=== PATIENT | male | born 1950 | race Caucasian/White ===

== ENCOUNTER → 2019-02-07 09:27 | Outpatient (CLI) | payer MEDICARE, OTHER, SELFPAY ==
[2019-02-07 10:10] LABS: Anion Gap 1 (5-15); BUN 18 mg/dL (7-18); BUN/Creat Ratio 18.8 RATIO (10-20); Calcium,Total 8.5 mg/dL (8.5-10.1); Chloride 110 mmol/L (98-107); Creatinine, Serum 0.96 mg/dL (0.70-1.30); EST Glomerular Filtration Rate 83 mL/min (>60); Est Glom Filt Rate - Afr Amer 100 mL/min (>60); Glucose 69 mg/dL (74-106); Potassium 4.3 mmol/L (3.5-5.1); Sodium Level 141 mmol/L (136-145)
== END ==
PROVIDERS: Family Provider Family Medicine; PCP Family Medicine; Referring Provider Physician Assistant Surgical; Visit Provider Physician Assistant Surgical
DX: I10 Essential (primary) hypertension (principal)
CPT/HCPCS: 36415; 80048

== ENCOUNTER → 2024-05-30 | Outpatient (CLI) | payer MEDICARE, OTHER, SELFPAY ==
--- NOTE | 2024-05-30 07:01 | CT_ITS ---
CT RIGHT LOWER EXTREMITY WITH 3-D IMAGING CLINICAL INDICATION: Pain in right knee. TECHNIQUE: Axial CT images of the right lower extremity (including right hip, right knee, and right ankle) was performed without IV contrast material. Coronal and sagittal reformats were provided. The protocol utilizes one or more of the following dose reduction techniques: automated exposure control, adjustment of mA and/or kV according to patient size, and/or use of iterative reconstruction technique. RADIATION DOSAGE (If Supplied By Facility): CTDIvol = ( 18.76 ) mGy, DLP = ( 1321.28 ) mGycm COMPARISON: No relevant prior comparison study available. FINDINGS: Bones: There is mild degenerative arthrosis of the right hip joint with small marginal osteophyte formation. There is mild tricompartment degenerative arthrosis with marginal osteophyte formation. There is a 1.0 cm ossified loose body located medial to the proximal tibiofibular joint. There is minimal tibiotalar arthrosis. There are tiny plantar and posterior calcaneal spurs. Osseous structures are intact without evidence of acute fracture or dislocation. No lytic or blastic osseous masses. Soft Tissues: There is a moderate right knee joint effusion. There are atherosclerotic calcifications. The deep soft tissue structures are otherwise unremarkable. The superficial soft tissues are unremarkable without evidence of edema, hematoma, or foreign body. CT/Extremity Lower without Contra IMPRESSION: Mild tricompartment degenerative arthrosis of the right knee. 1.0 cm ossified loose body located medial to the right proximal tibiofibular joint. Moderate right knee joint effusion. Electronically Signed: Devaughn Adrian MD at 15:29 EDT ,
== END | disposition home or self-care (01) ==
LOC: CT 06:56
PROVIDERS: PCP Family Medicine; Referring Provider Specialist; Visit Provider Specialist
DX: M17.31 Unilateral post-traumatic osteoarthritis, right knee (principal); M21.161 Varus deformity, not elsewhere classified, right knee; M25.561 Pain in right knee
CPT/HCPCS: 73700

== ENCOUNTER 2024-06-06 06:51 | Observation (INO) | payer MEDICARE, OTHER, SELFPAY ==
--- NOTE | 2024-05-12 07:35 | EKG12_ITS ---
Test Reason : PRE OP Blood Pressure : / mmHG Vent. Rate : 059 BPM Atrial Rate : 059 BPM P-R Int : 206 ms QRS Dur : 104 ms QT Int : 434 ms P-R-T Axes : 074 094 080 degrees QTc Int : 429 ms Sinus bradycardia Otherwise normal ECG Confirmed by Fabrizio Salvador ([id number]), continuity editor DEN STEPHENS ([id number]) on 05/13/2024 11:30:23 AM Referred By: Mariusz Trejo Confirmed By:Fabrizio Salvador
[2024-05-12 08:32] LABS: Absolute Lymphocyte Count 1.47 X10^3/uL (0.83-4.51); Absolute Neutrophil Count 3.4 X10^3/uL (2.0-7.7); Basophil# 0.04 X10^3/uL; Basophil% 0.7 % (0-1); Eosinophil# 0.13 X10^3/uL; Eosinophils% 2.3 % (0-5); Hematocrit 43.4 % (40-54); Hemoglobin 14.5 g/dL (13.0-16.5); Lymphocyte # 1.47 X10^3/ul (0.83-4.51); Lymphocyte % 26.1 % (19-41); Mean Corp Hgb Conc 33.4 g/dL (32-36); Mean Corpuscular Hgb 30.9 pg (27.0-32.0); Mean Corpuscular Volume 92.3 fL (80-94); Monocyte# 0.58 X10^3/uL; Monocyte% 10.3 % (0-10); NRBC Flagged by Analyzer 0 % (0-5); Neutrophil % 60.4 % (47-70); Platelet Count 149 K/mm3 (150-450); RBC Distribution Width CV 12.4 % (11.6-14.6); RBC Distribution Width SD 42.5 fl (35.1-43.9); White Blood Count 5.6 K/mm3 (4.4-11.0)
[2024-05-12 09:01] LABS: Albumin, Serum 3.7 g/dL (3.2-5.0); Anion Gap 5 (5-15); BUN 18 mg/dL (7-18); BUN/Creat Ratio 19.2 RATIO (10-20); Calcium,Total 8.7 mg/dL (8.5-10.1); Chloride 109 mmol/L (98-107); Creatinine, Serum 0.94 mg/dL (0.70-1.30); EST Glomerular Filtration Rate 84 mL/min (>60); Est Glom Filt Rate - Afr Amer 102 mL/min (>60); Glucose 101 mg/dL (74-106); Potassium 4.2 mmol/L (3.5-5.1); Sodium Level 142 mmol/L (136-145)
--- NOTE | 2024-05-27 09:08 | HP.PCM_ITS ---
History and Physical History and Physical Patient Name: Prabhjot Onofre : 1950From:? KIM SOTO PA-C DATE OF PRE-OPERATIVE EXAM: 05/27/2024 DATE OF SURGERY:? 06/06/2024 SCHEDULED PROCEDURE:? Robotic-assisted right total knee arthroplasty HISTORY OF PRESENT ILLNESS: Preoperative history and physical exam was performed on May 27, 2024.? This is a 83-year-old male who is been having ongoing pain for several years in bilateral knees.? The right is worse than the left.? Patient's pain is been intermittent, dull, sharp, stabbing, sore.? Pain is increased with going up and down stairs, walking and going up and down inclines.? He has difficulty with activities of daily living including leisure activities such as hiking and playing with his grandkids.? He cannot run.? He has stumbled secondary to the knee pain when it has buckled.? He does feel the right knee will hyperextend at times.? Patient has attempted rest, ice, elevation with minimal relief.? He has been through physical therapy and home exercises with no relief.? He has attempted previous corticosteroid injection and Visco supplementation injections without much relief.? He has had a previous right knee surgery in 1976.? He has attempted [id number] Advil, Tylenol and to be metallic.? He has also been on meloxicam in the past.? He has attempted bracing when hiking.? After failing conservative measures and discussing all treatment options with Dr. Mariusz Trejo, the patient does wish to proceed with a robotic assisted right total knee arthroplasty.? Patient has obtain surgical clearance from primary care provider Dr. Garfield Brunson and cardiology with Rachel Funez.? Patient denies any past history of DVT or pulmonary embolism.? No recent chest pain, shortness of breath, fevers chills or recent infections.? Patient has medical history pertinent for hypertension, hypercholesterolemia, previous heart valve replacement. REVIEW OF SYSTEMS: Review Of Systems: Constitutional: Denies change in appetite, fever and weight change. Cardiovasular: Denies chest pain, heart murmur and irregular heartbeat. Respiratory: Denies cough, pneumonia, shortness of breath, tuberculosis and wheezing. Gastrointestinal: Denies constipation, diarrhea, heartburn, nausea, rectal itching, bloody stools and vomiting. Genitourinary: Denies incontinence. Musculoskeletal: Denies leg swelling, pain, trouble walking and weakness. Skin: Denies Raynaud's, history of shingles and tattoo. Neurological: Reports tremor but denies ambulatory dysfunction, dizziness and numbness/tingling. Psychiatric: Denies anxiety, insomnia and stress. Hematologic/Lymphatic: Denies anemia, bleeding/bruising tendency and past transfusion. Reviewed, no changes. PAST MEDICAL HISTORY: Advance Care Plan: Other Directive, LIVING WILL Effective Date: 11/21/2021 Other Directive, POA Effective Date: 11/21/2021 Past Medical History: Medical Problems: High Blood Pressure, Hypercholesterolemia, MVP Accidents: None Surgical Hx: Hernia Repair, Tonsillectomy Knee Arthroscopy RT - (1976) Heart Valve Repair RT Shoulder Arthroscopy - (02/23/2019) [email or web address] Anesthesia Complications: None Assistive Devices: Glasses Reviewed, no changes. SOCIAL HISTORY: Social History: Marital: .Occupation: Retired.Work Status: Retired.Hand Dominance: Right- handed. Personal Habits:? Cigarette Use: Never Smoked Cigarettes.Alcohol: Occasionally.Drug Use: Denies Use.Enjoy Exercising: Daily. Reviewed, no changes. VITALS: Ht: 70.5 Wt: 173lb 6oz Wt k.643 BMI: 24.5 BP: 120/72 Pulse: 71 T: 97.3 T: 36.3C Pain Level: 3 O2SatR: 96 ALLERGIES: Naproxen MEDICATIONS: Benadryl 25 mg 1po qhs, Rosuvastatin Calcium 10 mg 1 by mouth every day, Sildenafil Citrate 50 mg, Metoprolol Succinate ER 50 mg once daily, Diphenhydramine HCL 25 mg ayan, Aspirin 81 Low Dose 81 mg ayan PRE-OP EXAM: General appearance:NORMAL? Other: Eyes: Conjunctivae and lids: NORMAL? Pupils: ERR Ears, Nose, Mouth, and Throat: NORMAL? Other: Inspection of lips, teeth and gums: NORMAL?? Other: Neck: Examination of neck: no masses noted. Respiratory: Assessment of respiratory effort: NORMAL?? Other: ? Auscultation of lungs: clear to auscultation no wheezes, rhonchi or rales. Cardiovascular:? Auscultation of heart: regular rate and rhythm, no murmurs, gallops or rubs. PHYSICAL EXAMINATION: On exam of the right knee there is no erythema or signs of infection.? He has moderate effusion.? There is medial joint line tenderness.? Previous incisions are well healed.? Patient has correctable varus alignment on exam today.? P atient's range of motion 0 extension 132 flexion with crepitus.? Stable to varus/valgus stress test, stable to anterior/posterior drawer exam.? Sensation intact. IMAGING STUDIES: Previous x-rays of the right knee reveal varus alignment with medial joint space narrowing, subchondral sclerosis, osteophyte formation consistent with severe stage IV [id number] erosive osteoarthritis.? There is lateral subluxation of the tibia on the femur.? Left knee also reveals severe stage IV [id number] erosive osteoarthritis with lateral subluxation of the tibia. IMPRESSION: 1.? Severe right knee osteoarthritis with varus alignment 2.? Severe left knee osteoarthritis with varus alignment 3.? Hypertension 4.? Hypercholesterolemia 5.? History of heart valve replacement PLAN: Dr. Mariusz Trejo did discuss and review with the patient all treatment options including surgical versus nonsurgical options.? Patient does wish to proceed with the above-stated procedure.? Potential risks, benefits, and complications of the procedure were discussed in detail including but not limited to , infection, nerve and blood vessel damage, persistent pain, numbness, tingling, paresthesias, blood clot, pulmonary embolism, and requirement for possible further surgery.? The patient expressed full understanding and has no further questions for the doctor.? Patient does agree to proceed with the above-stated p rocedure and has signed the surgery consent form. POST-OP MEDICATION PLAN: Pain Medications: Postoperative pain regimen will be initiated by Dr. Mariusz Trejo in the hospital.? Patient does have allergy to naproxen but as tolerated many other nonsteroidal anti-inflammatories.? Patient will require walker fitting with our physical therapy department today.? Patient was instructed to bring the walker to the hospital.? He has had appropriate clearance from cardiology and primary care provider.? He has been following our nutrition protocol. DVT Prophylaxis:? Aspirin 81 mg twice daily for 4 weeks postoperatively.? Denies past history of DVT or pulmonary embolism This dictation was created using voice recognition software. Phonetic and/or grammatical errors may exist. ___? I have re-examined the patient.? There are no clinical changes since date of exam. ___? See progress notes for changes. ___? Dictated on admission Date: ? Time: Signature:
[2024-06-06] VITALS (15 sets, daily range): BP systolic 84–124; BP diastolic 47–85; PULSE 68–86; RESP 16–18; TEMP 36.1–36.8; O2SAT 93–100; BMI 24.0; BMI 25.1
--- NOTE | 2024-06-06 06:52 | RAD_ITS ---
STUDY: X-RAY - RIGHT KNEE REASON FOR EXAM: Male, 74 years old. Post op -- AP and Lateral xray of operative knee in PACU TECHNIQUE: 2 view(s) of the knee. COMPARISON: None. FINDINGS: Normal visualized distal femur. Normal visualized proximal tibia and fibula. Normal proximal tibiofibular articulation. The patient is status post total knee replacement. There is good alignment. Postoperative soft tissue changes. RAD/Knee 1 or 2 Views IMPRESSION: Status post total knee replacement. There is good alignment. Postoperative soft tissue changes. Electronically Signed: Antony Guevara MD at 13:35 EDT ,
--- NOTE | 2024-06-06 09:34 | PCM.PRE.AN2 ---
ASA Classification* ASA Classification ASA Classification: 2 Assessment & Plan Anesthesia* Anesthesia Assessment Anesthesia Assessment: Discussed sedation and/or anesthesia options, risks, benefits, and alternatives with patient/parents/legal guardian/POA. Questions invited. The patient/parents/legal guardian/POA seems to understand and agrees to proceed with anesthesia plan. Reviewed the physical assessment, medical history, allergy history and patient home medications list prior to surgery/procedure/anesthetic and documented any changes. Performed airway and anesthesia risk assessments. Anesthesia Type Anesthesia Type: Spinal (consented for adductor canal block) Anesthesia Focused Assessment* Airway Assessment Mouth opens: >3 cm Mallampati Score: II Focused Labs Anesthesia Preop lab: CBC WBC 5.6 K/mm3 (4.4-11.0) 05/12/24 08:02 RBC 4.70 M/mm3 (4.6-6.2) 05/12/24 08:02 Hgb 14.5 g/dL (13.0-16.5) 05/12/24 08:02 Hct 43.4 % (40-54) 05/12/24 08:02 Plt Count 149 K/mm3 (150-450) L 05/12/24 08:02 CHEMISTRY Potassium 4.2 mmol/L (3.5-5.1) 05/12/24 08:02 Sodium 142 mmol/L (136-145) 05/12/24 08:02 Magnesium 2.0 mg/dL (1.6-2.6) 05/12/24 08:02 BUN 18 mg/dL (7-18) 05/12/24 08:02 Creatinine 0.94 mg/dL (0.70-1.30) 05/12/24 08:02 Glucose 101 mg/dL (74-106) 05/12/24 08:02 COAG Pre-Assessment Diagnosis/Proposed Procedure Planned Operative Procedure(s): ROBOTIC ASSISTED RIGHT TOTAL KNEE ARTHROPLASTY Anesthesia History 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 When Was Last Pacemaker Check QUESTION #4 FULL TEXT: You/Your Family Experience fever (hyperthermia) with Anesthesia Last Oral Intake Last Oral intake: Last Oral Intake NPO since Meds taken in AM with sips of water? Meds patient instructed to take am of surgery PONV PONV - prepared foods service team member: PONV - prepared foods service team member Female No 05/11/24 09:05 HX of Motion Sickness Yes 05/11/24 09:05 HX of N/V After Surgery No 05/11/24 09:05 Non-Smoker Yes 05/11/24 09:05 Duration of Surgery greater Yes 05/11/24 09:05 than 60 minutes Number of Risk Factors 3 05/11/24 09:05 PONV Score Moderate Risk 05/11/24 09:05 Respiratory Assessment Respiratory Assessment - prepared foods service team member: Respiratory Tract Infection Hx - prepared foods service team member Hx Respiratory Tract Infection No 05/11/24 09:05 STOP Sleep Apnea STOP Sleep Apnea - prepared foods service team member: STOP Sleep Apnea - prepared foods service team member Hx Hypertension Yes: CONTROLLED WITH MED 05/11/24 09:05 Hx Sleep Apnea No 05/11/24 09:05 CPAP BIPAP Do you snore loudly (louder Yes 05/11/24 09:05 than talking or can be heard Do you often feel tired/ No 05/11/24 09:05 fatigued/ sleepy during daytime? Has anyone observed you stop Yes 05/11/24 09:05 breathing during sleep? STOP Results Positive 05/11/24 09:05 QUESTION #5 FULL TEXT : Do you snore loudly (louder than talking or can be heard through closed doors)? 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 Specify any problems Hx of Preganancy in last 3 N/A 05/11/24 09:05 Months Nurse Filling Out Transfusion DSCHRIBER 05/11/24 09:05 & Questions: Date: 05/11/24 05/11/24 09:05 Time: 09:07 05/11/24 09:05 Patient unable to answer at this time (ie. confused, unrespo /Reproduction History /Reproductive History - prepared foods service team member: /Reproductive Hx- prepared foods service team member Hx Now No 05/11/24 09:05 Gestational Age (in weeks): EDC: Hx Hx Para Hx Section SAB No 05/11/24 09:05 Active Medications Active Medications: Current Medications Generic Name Dose Route Start Last Admin Trade Name Freq PRN Reason Stop Dose Admin Acetaminophen 1,000 mg 06/06/24 11:15 Acetaminophen 500 Mg Tablet PO 06/06/24 11:16 X1 ONE Acetaminophen 1,000 mg 06/06/24 14:00 Acetaminophen 500 Mg Tablet PO Q8 [facility] Aspirin 81 mg 06/06/24 10:00 Aspirin 81 Mg Tab.Chew PO BID [facility] Celecoxib 400 mg 06/06/24 11:15 Celecoxib 200 Mg Capsule PO 06/06/24 11:16 X1 ONE Tranexamic Acid 2,000 mg/ 0 mg 06/06/24 11:15 Sodium Chloride 100 ml OPERA.SITE 06/06/24 11:16 X1 ONE Sodium Chloride 77.4 ml/ 0 ml 06/06/24 11:15 Ropivacaine 200 mg/ OPERA.SITE 06/06/24 11:16 Epinephrine HCl 0.6 mg/ X1 ONE Ketorolac Tromethamine 30 mg/ Morphine Sulfate 5 mg Dexamethasone Sodium Phosphate 10 mg 06/06/24 11:15 Dexamethasone 10 Mg/Ml Vial IV 06/06/24 11:16 X1 ONE Enteral Nutritional Formula 237 ml 06/06/24 12:00 Ensure Surgery 237 Ml Liquid PO TIDCM [facility] Famotidine 20 mg 06/06/24 10:00 Famotidine 20 Mg Tablet PO DAILY [facility] Gabapentin 600 mg 06/06/24 11:15 Gabapentin 600 Mg Tablet PO 06/06/24 11:16 X1 ONE Lactated Ringer's 1,000 mls @ 999 mls/hr 06/06/24 11:15 IV 06/06/24 12:15 .Q1H1M [facility] Cefazolin Sodium 2 gm/ Sodium 110 mls @ 150 mls/hr 06/06/24 11:15 Chloride IV 06/06/24 11:58 PREOP ONE Lactated Ringer's 1,000 mls @ 999 mls/hr 06/06/24 12:15 IV 06/06/24 13:15 .Q1H1M VIRGIL Lactated Ringer's 1,000 mls @ 125 mls/hr 06/06/24 13:15 IV 06/06/24 21:14 .Q8H [facility] Magnesium Sulfate 1 gm/ 102 mls @ 408 mls/hr 06/06/24 11:15 Dextrose IV 06/06/24 11:29 X1 ONE Cefazolin Sodium 1 gm in 50 mls @ 150 mls/hr 06/06/24 14:00 IV 06/06/24 22:19 Q8 [facility] Insulin Human Lispro 1 - 6 unit 06/06/24 11:15 Insulin Lispro 100 Unit/Ml Insuln.Pen SC 06/06/24 17:15 Q4H PRN PRN BG>/= 180, SEE PROTOCOL Protocol Ketorolac Tromethamine 15 mg 06/06/24 06:51 Ketorolac 15 Mg/Ml Vial IV 06/08/24 06:53 Q6H PRN PRN Pain Score 1-5 Meloxicam 7.5 mg 06/08/24 10:00 Meloxicam 7.5 Mg Tablet PO BID [facility] Metoprolol Succinate 50 mg 06/06/24 22:00 Metoprolol(Xl)Succ 50 Mg Tablet PO QHS [facility] Protocol Morphine Sulfate 2 - 4 mg 06/06/24 06:51 Morphine 2 Mg/Ml Syringe IV Q2H PRN PRN Pain Score 6-10 Non-Formulary Medication 125 mcg 06/06/24 22:00 Cholecalciferol (Vitamin D3) [Vitamin D3] PO QHS [facility] Non-Formulary Medication 10 mg 06/06/24 22:00 Rosuvastatin PO QHS [facility] Ondansetron HCl 4 mg 06/06/24 06:51 Ondansetron 4 Mg/2 Ml Vial IV Q8H PRN PRN NAUSEA Oxycodone HCl 5 - 10 mg 06/06/24 06:51 Oxycodone 5 Mg Tablet PO Q4H PRN PRN Pain Score 4-10 Promethazine HCl 12.5 mg 06/06/24 06:51 Promethazine 25 Mg/Ml Syringe IM Q6H PRN PRN NAUSEA/VOMITING Protocol Senna/Docusate Sodium 2 tablet 06/06/24 10:00 Senna/Docusate Sodium 1 Tablet PO BID [facility] Medical History Wears hearing aid Wears glasses Alcohol use Arthritis High cholesterol Back pain Injury of back Syncope Non-smoker Leg cramps History of pain when walking Hypertension History of stress test History of echocardiogram Cardiology follow-up encounter History of inguinal hernia Home Medications ?Medication ?Instructions ?Recorded ?Last Taken ?Type aspirin 81 mg tablet,delayed 81 mg PO QHS 05/11/24 Unknown History release (Adult Aspirin Regimen) cholecalciferol (vitamin D3) 125 125 mcg PO QHS 05/11/24 Unknown History mcg (5,000 unit) tablet (Vitamin D3) diphenhydramine HCl 25 mg capsule 25 mg PO QHS 05/11/24 Unknown History (Benadryl) metoprolol succinate 50 mg 50 mg PO QHS 05/11/24 Unknown History tablet,extended release 24 hr rosuvastatin 10 mg tablet 10 mg PO QHS 05/11/24 Unknown History sildenafil 50 mg tablet 50 mg PO PRN PRN ED 05/11/24 Unknown History Allergy/AdvReac Type Severity Reaction Status Date / Time naproxen Allergy Intermediate Swelling Verified 05/11/24 08:55 Surgical History History of cardiac catheterization Hx of colonoscopy Hx of toe surgery Hx of tonsillectomy Hx of arthroscopic knee surgery History of shoulder surgery Hx of mitral valve repair Social History Smoking Status: Never smoker Review of Systems (Anesthesia) ROS Narrative System reviewed and no additional complaints, except as documented.
[2024-06-06 10:04] LABS: Bedside Glucose 94 mg/dL (74-106)
[2024-06-06] MEDS: Magnesium 1 GM over 15 mins IV (10:04)
[2024-06-06] MEDS: Lactated Ringers 1,000 ML 999 ML IV ×2 (10:04→12:15)
[2024-06-06] MEDS: Gabapentin 600 MG Tablet PO (10:17)
[2024-06-06] MEDS: Celecoxib 200 MG Capsule 400 MG PO (10:18)
[2024-06-06] MEDS: Acetaminophen 500 MG Tablet 1000 MG PO ×3 (10:18→21:25)
[2024-06-06] MEDS: Cefazolin 2 GM in 0.9% Normal Saline (100mL Bag) 100 ML IV (11:01)
--- NOTE | 2024-06-06 11:15 | KNEE_PTH ---
PATIENT: RENATE MONCADA LOC: MS3 U#:[id number] AGE/SX: 74/M ROOM: [facility] RE06/06/[address]: Dr. Mariusz Trejo MD : 1950 BED: 1 DIS: 06/07/2024 SPEC #: [id number] RECD: 06/07/24 07:23 STATUS: SERJIO SALAS #: [id number] JOSEPH: 06/06/24 11:[address]: Mariusz Trejo DEPT: SURGICAL PATHOLOGY RECD BY: Ashanti Goldman ENTERED: 06/07/24 09:53 SP TYPE: TOTAL KNEE OTHR DR: MD Dr. Garfield Ross, DO Tissues: Knee, NOS Procedures: Decalcification bone/plaque Surgery Specimen Level IV HEADER OPERATION: Robotic assisted right total knee arthroplasty PRE-OP DIAGNOSIS: Severe right knee osteoarthritis, with varus alignment TISSUE SUBMITTED: Right knee bone and tissue MICROSCOPIC DIAGNOSIS Bone and soft tissue, right knee, total knee replacement/resection: Pieces of bone with degenerative osteoarthritic changes. Fibroadipose tissue, fibroconnective tissue and reactive synovial tissue. ANGI: 06/10/2024 MICROSCOPIC DESCRIPTION Slides are reviewed. GROSS DESCRIPTION Received is one container designated bone and soft tissue right knee. The specimen consists of multiple fragments of prabhakar-yellow bone measuring in aggregate 10.0 x 9.0 x 3.5 cm. A piece of soft tissue is noted attached to the bone measuring 4.5 x 2.5 x 1.0cm. A number of bony fragments contain articular surfaces consistent with tibial plateau and femoral condyle and displaying prominent osteophyte formation, eburnation and bone erosion. Order To Delivery Supervisor sections are submitted in two cassettes as follows: 1 - soft tissue, 2 - bone after decalcification. / ANGI/ 06/07/2024 TC:5 CPT: 86570, 64026
[2024-06-06] MEDS: dexAMETHasone 10 MG/ML Vial IV (11:30)
[2024-06-06] MEDS: JPS (Morphine 10mg/ml) OPERA.SITE (12:15)
--- NOTE | 2024-06-06 12:15 | PCM.OPRPT ---
Report of Operation Date of Procedure: 06/06/24 Pre-Operative Diagnosis: Right knee primary osteoarthritis Post-Operative Diagnosis: Right knee primary osteoarthritis Surgery/Procedure Performed:: Right minimally invasive robotic total knee replacement Description of Surgical Findings:: Stable knee with good patella tracking. Stage IV osteoarthritis medial and lateral compartment. Patella had appropriate cartilage and we elected to leave the patella on resurfaced Surgeon: Mariusz Trejo warp clamper: Neal Torrez Type of Anesthesia: Spinal Anesthesiologist: Dominick Odom Special Medications: 2 g Ancef, 1 g TXA at incision, 1 g TXA closure, 10 mg Decadron, joint cocktail (5 mg Duramorph, 30 mL of 0.5% Ropivicaine, 1000 units of epinephrine, 30 mg of Toradol) Specimen's removed: Bony cuts Estimated Blood Loss (mL): 125 Fluids Replaced: 2000 mL crystalloid Description of Procedure: Implants used: 1. Chano size 6 triathlon cruciate retaining distal femoral press-fit component 2. Chano size 7 press-fit tritanium tibial baseplate 3. Chano X3 10 mm CS polyethylene Brief history operative indications: 74-year-old M with history of right knee osteoarthritis with radiographic findings with loss of joint space, osteophyte formation and subchondral sclerosis. Failed conservative measures as mentioned in the H&P. Discussion of total knee arthroplasty as well as risk and benefits were discussed the patient including but not limited to blood loss, DVTs, PEs, neurovascular damage, general risk of anesthesia including loss of life, and stiffness or instability were discussed with patient. Patient demonstrated understanding and was able to sign informed consent. Procedure: On the date of procedure patient's right lower extremity was marked in the preoperative area. The patient was then taken back to the operating room where the patient was placed on the table in the supine position. All bony prominences were identified a well-padded. Anesthesia assumed control of the C-spine and airway and remained controlled throughout the remainder of the procedure. A tourniquet was placed on the right upper thigh and the leg was prepped in a sterile fashion. The surgeon then scrubbed at this time .Upon reentering the room right lower extremity was draped in a standard orthopedic fashion. A timeout was then called and everyone agreed upon the side, the site, the procedure to be performed, patient's identity and antibiotics given. Esmarch bandage was used to exsanguinate the extremity and the tourniquet was placed up to 250 mmHg with the knee in flexion. A midline skin incision was made and sharp dissection was taken down through skin subcutaneous tissue and fat. The standard medial parapatellar incision was made and the patella was subluxed laterally. An Appropriate deep MCL release was done and the fat pad was resected. Our attention was then directed to the patella. The patella was everted and examined and found to have minimal cartilage damage. The knee was then flexed up in 2 femoral pins were placed inside the incision and 2 tibial pins were placed outside the incision in the medial tibia bicortically. Once this was completed the 2 checkpoints in the femur and tibia were placed. Knee was then flexed up and the bony landmarks were registered. Once this was completed knee was taken through range of motion and manually stressed allowing us to a plan for an appropriate tibial cut. The robotic arm was brought into the field sterilely and checkpoint and saw were registered. Based on the patient's deformity the tibial cut was made in 2 degrees of varus. At this time the tensioner was then placed in the joint and ligament tension was checked at 90 degrees and full extension. Based on the patient's ligamentous tension appropriate adjustments were made to the operative plan and ligament releases were done. Once we were happy with our operative plan with balanced flexion and extension gaps our attention was directed to the femur. The robot was brought into the field sterilely and registered. Posterior condylar cuts, anterior chamfer cuts and anterior cuts were appropriately made for a size 6 femur. When these were completed the saws were switched out in the distal femoral and posterior chamfer cuts were made. Protecting the soft tissue throughout this time. A size 7 tibial base plate was selected. the knee was flexed to 90 degrees and the soft tissues and posterior osteophytes were removed from the joint. 40 cc of the periarticular injection was injected into the posterior medial corner of the joint. The appropriate trials were then placed on the femur and tibia. A trial polyethylene was trialed to ensure proper balancing and stability of the knee. The appropriate tibial internal rotation was then marked with a bovie. Our attention was then directed to the patella. Patellar tracking was checked and deemed appropriate. Once we were happy lug holes were drilled for the femur and trial components were removed. the tibia was subluxed and pinned into place and the keel was punched and drilled appropriately. Final components were verified and opened, and cement was mixed in a vacuum. [employer] Simplex cement was used. The wound was copiously irrigated with normal saline. When the implants were ready the components were impacted into place starting with the tibia then femur. The trial poly component was placed and the knee was placed in full extension. All excess cement was removed in the process. Once the cement had cured the tracking, alignment and balance were verified and a size 10 mm CS polyethylene component was placed. Once the final components were placed a 3-minute dilute Betadine lavage was performed followed by an Irrisept lavage was performed and the wound was copiously irrigated with normal saline solution and the periarticular injection was given. The wound was closed in a layer moreland fashion using #1 vicryl interrupted sutures for the arthrotomy, 2-0 interrupted Vicryl suture for the subcuticular layer and ilir for final skin closure. A sterile compressive dressing was then placed. The patient was then awakened from anesthesia, transferred to the radrian and transferred to the PACU for recovery. Post op plan DVT ppx: ASA 81mg BID, thigh high compression stockings Follow up: in office in 2 weeks for wound check PT: to start POD #0 at hospital, outpatient PT should be arranged. My physician wet process assistant head miller was a vital part of this case. He was important in appropriate retraction during the case, and protection of soft tissues during bony cuts. His intimate knowledge of the case and my steps aided in safe and expedient completion of the procedure as well as appropriate position of the leg during the case. He was also vital in assisting with closure under my direct supervision. Due to the complexity of this case robotic arm was used to assist in the surgery to improve accuracy and clinical outcomes. Complications No intraoperative complications Admit VTE Documentation VTE Present on Admission: No VTE Mechan Device Prophylaxis: SCD's and Thigh High JESUS Hose VTE Pharm Prophylaxis ordered?: Yes
[2024-06-06] MEDS: TXA in NS 100ml (Placed in Wound) OPERA.SITE (12:16)
--- NOTE | 2024-06-06 13:05 | PCM.POST.ANE ---
Anesthesia: Postop Eval I Current Vital Signs Temperature: 97.1 F Pulse Rate: 76 Blood Pressure: 94/67 Respiratory Rate: 18 Pulse Ox: 98 Oxygen Delivery Method: Room Air Assessment Airway patent: Yes Spontaneous unlabored respirations: Yes Mental status: Awake and Calm nausea: No Vomiting: No Anesthesia Complication: No Fluid Hydration Crystalloid volume administer (ml): 2,000 Total IV fluid infused: 2,000 Progress Note Anesthesia document: Postop Eval 1 completed: Yes
[2024-06-06] MEDS: Lactated Ringers 1,000 ML 125 ML IV (13:45)
--- NOTE | 2024-06-06 15:06 | POSTOPAN2_ITS ---
Anesthesia Postop Eval I Sum Postop Eval Completion status Anesthesia document: Postop Eval 1 completed: Yes Anesthesia Postop Eval I Summary Anesthesia Postop Eval I Summary: Anesthesia Postop Eval I: Assessment Summary Airway patent Yes 06/06/24 13:06 FENCE MAKING MACHINE OPERATOR.[email or web address] Spontaneous unlabored Yes 06/06/24 13:06 FENCE MAKING MACHINE OPERATOR.NICOLE respirations Mental status Awake,Calm 06/06/24 13:06 FENCE MAKING MACHINE OPERATOR.NICOLE nausea No 06/06/24 13:06 FENCE MAKING MACHINE OPERATOR.NICOLE Vomiting No 06/06/24 13:06 FENCE MAKING MACHINE OPERATORSTACEY Anesthesia Postop Eval I: Fluid Summary Crystalloid volume administer 2,000 06/06/24 13:06 FENCE MAKING MACHINE OPERATOR.TONYAOBAmador (ml) Colloids volume administered ( ml) Blood Product volume administered (ml) Total IV fluid infused 2,000 06/06/24 13:06 FENCE MAKING MACHINE OPERATOR.NICOLE Anesthesia Postop Eval I: Summary Notes Anesthesia Complication No 06/06/24 13:06 FENCE MAKING MACHINE OPERATORSTACEY Anesthesia Complication Comment: Post-operative progress note Anesthesia: Postop Eval II Evaluation Mental status: Awake and Calm Pain Level: 1 nausea: No Vomiting: No Complications Anesthesia Complication: No
--- NOTE | 2024-06-06 15:06 | PCM.POSTANE2 ---
Anesthesia Postop Eval I Sum Postop Eval Completion status Anesthesia document: Postop Eval 1 completed: Yes Anesthesia Postop Eval I Summary Anesthesia Postop Eval I Summary: Anesthesia Postop Eval I: Assessment Summary Airway patent Yes 06/06/24 13:06 WATERSHED [email or web address] Spontaneous unlabored Yes 06/06/24 13:06 WATERSHED ENGINEER.NICOLE respirations Mental status Awake,Calm 06/06/24 13:06 WATERSHED ENGINEER.NICOLE nausea No 06/06/24 13:06 WATERSHED ENGINEER.NICOLE Vomiting No 06/06/24 13:06 WATERSHED ENGINEERSTACEY Anesthesia Postop Eval I: Fluid Summary Crystalloid volume administer 2,000 06/06/24 13:06 WATERSHED ENGINEER.TONYAOBAmador (ml) Colloids volume administered ( ml) Blood Product volume administered (ml) Total IV fluid infused 2,000 06/06/24 13:06 WATERSHED ENGINEER.NICOLE Anesthesia Postop Eval I: Summary Notes Anesthesia Complication No 06/06/24 13:06 WATERSHED ENGINEERSTACEY Anesthesia Complication Comment: Post-operative progress note Anesthesia: Postop Eval II Evaluation Mental status: Awake and Calm Pain Level: 1 nausea: No Vomiting: No Complications Anesthesia Complication: No
--- NOTE | 2024-06-06 15:39 | CASEMGMT ---
Social Work- SW met with pt to discuss advance directives.? Pt confirms she has completed a living will and health care POA naming Janel, .? Pt notified that documents are not on file at [facility] and SW requested they be brought in for scanning into the EMR.? [facility]
[2024-06-06] MEDS: oxyCODONE 5 MG Tablet PO ×2 (17:21→21:24)
[2024-06-06] MEDS: 0.9% Saline Lock 10 ML Syringe IV (18:59)
[2024-06-06] MEDS: Cefazolin 1 GM/50 ML BAG IV (18:59)
[2024-06-06] MEDS: Aspirin 81 MG TAB.CHEW PO (21:25)
[2024-06-06] MEDS: Metoprolol(XL)Succ 50 MG Tablet PO (21:25)
[2024-06-06] MEDS: Atorvastatin Calcium 20 MG Tablet PO (21:25)
[2024-06-06] MEDS: Senna/Docusate Sodium 1 Tablet 2 TABLET PO (21:25)
[2024-06-06] MEDS: Cholecalciferol (Vit D3) 125 MCG CAPSULE (5,000 UNITS) PO (21:26)
--- NOTE | 2024-06-06 22:08 | PN.HOSP_ITS ---
Reason for Visit Reason for Visit: Diagnoses Encounter for other preprocedural examination (06/06/24) Subjective Subjective Patient status post right minimally invasive robotic total knee replacement per Dr. Trejo. In PACU patient is evaluated and denies any significant pain with recent blocks starting, off able to now move his lower extremity with no significant paresthesias. He denies any pain at this time. He is currently tolerating ice chips and liquids with no nausea or dyspepsia. Patient denies fevers, chills, nausea, emesis, abdominal pain, chest pain or dyspnea. Objective Data Objective Data Vital Signs: Vital Signs Temp Pulse Resp BP Pulse Ox O2 Del Method O2 Flow Rate 97.9 F 86 17 102/76 95 Room Air 4 06/06/24 21:25 06/06/24 21:25 06/06/24 21:25 06/06/24 21:25 06/06/24 21:25 06/06/24 21:29 06/06/24 13:39 Oxygen Flow Rate (L/min) 4 Oxygen Delivery Method Room Air Weight: 180 lb Body Mass Index (BMI) 25.1 Intake & Output: Intake and Output for Last 24 Hours 06/04/24 06/05/24 06/06/24 23:59 23:59 23:59 Intake Total 2329.82 / 2329.82 Balance 2329.82 / 2329.82 Lab / Micro Data 05/12/24 08:02 05/12/24 08:02 Labs: Laboratory Results - last 24 hr 06/06/24 09:41: POC Glucose 94 Micro: Microbiology 05/12/24 08:02 Swab (Method) Nasal Screen MRSA/MSSA - Final Radiography Diagnostic Testing: Radiology Impression Knee X-Ray 06/06/24 06:52 IMPRESSION: Status post total knee replacement. There is good alignment. Postoperative soft tissue changes. Electronically Signed: Antony Guevara MD at 13:35 EDT , Physical Exam Narrative Physical Examination: General: Awake, alert, oriented x 3 and cooperative, seated upright in the PACU bed, fatigued but no acute distress. Skin: Normal color, normal turgor, no icterus, no cyanosis except recent right total knee replacement with dressing in place, no drainage. HEENT: AT/NC, EOMI, PERRLA, mildly dry MM. Lungs: CTA bilaterally, moderate effort, mild decrease BL bases, no rales, ronchi or wheezing. Heart: Regular rate and rhythm; no gallop, rub audible. Abdomen: Soft, NTTP, ND, normal BS, no appreciated HSM. Extremities: No cyanosis, no clubbing, no marked peripheral edema, status post right total knee replacement with dressing placed with no drainage. Neurological: Patient awake, alert, oriented as noted, cognitive function intact; pupils equally reactive to light and accommodation, cranial nerves grossly normal, moving all 4 extremities except expected limitation right lower extremity given recent right total knee replacements and block now wearing off, strength accordingly moderately to severely global decreased. Psychiatric: Affect appears normal, no acute evidence of depressive or anxiety feelings. Assessment & Plan Assessment/Plan (1) Osteoarthritis: PLAN: Plan The patient is a 74 y/o M w/ PMHx: Severe OA R Knee, HTN, HLD, Valvular Heart Disease s/p MVR who presents to the [facility] on 06/06/24 secondary to significant right knee discomfort for planned right total knee replacement per Dr. Koch. #1. Severe Osteoarthritis, right knee: Failed conservative therapies and treatments, admitted per Dr. Trejo, status post right minimally invasive robotic total knee replacement, post-operative pain management, bowel regimen, DVT Prophylaxis, PT/OT/CM per Orthopedic surgery discretion. #2. Valvular heart disease: No echocardiogram noted in the system, per records status post MV replacement but unclear, encourage continued outpatient follow-up with cardiology as previously arranged. #3. Hypertension: Continue home regimen including metoprolol, PRN hydralazine. #4. Hyperlipidemia: We will continue patient on statin therapy. #5. DVT prophylaxis: SCDs, defer chemoprophylaxis to surgery service given recent OR. Charges/Coding Visit Charges Inpatient E&M: 49943 Subs Hosp L3
[2024-06-07] MEDS: Cefazolin 1 GM/50 ML BAG IV (02:22)
[2024-06-07] MEDS: oxyCODONE 5 MG Tablet PO ×2 (02:27→08:49)
[2024-06-07 02:37] VITALS: BP 105/65; PULSE 78; RESP 17; TEMP 36.6; O2SAT 98
[2024-06-07] MEDS: Acetaminophen 500 MG Tablet 1000 MG PO (05:19)
[2024-06-07 05:21] VITALS: BP 111/77; PULSE 75; RESP 17; TEMP 36.6; O2SAT 96
[2024-06-07 07:01] LABS: Hematocrit 33.9 % (40-54); Hemoglobin 11.5 g/dL (13.0-16.5); Mean Corp Hgb Conc 33.9 g/dL (32-36); Mean Corpuscular Hgb 31.5 pg (27.0-32.0); Mean Corpuscular Volume 92.9 fL (80-94); Mean Platelet Vol. 9.6 fl (6.2-12.0); Platelet Count 161 K/mm3 (150-450); RBC Distribution Width CV 12.5 % (11.6-14.6); RBC Distribution Width SD 42.8 fl (35.1-43.9); Red Blood Count 3.65 M/mm3 (4.6-6.2); White Blood Count 12.6 K/mm3 (4.4-11.0)
[2024-06-07 07:30] LABS: Anion Gap 3 (5-15); BUN 17 mg/dL (7-18); Calcium,Total 8.2 mg/dL (8.5-10.1); Chloride 109 mmol/L (98-107); EST Glomerular Filtration Rate 88 mL/min (>60); Est Glom Filt Rate - Afr Amer 107 mL/min (>60); Estimated Creatinine Clearance 77.86 ml/min; Glucose 126 mg/dL (74-106); Potassium 5.2 mmol/L (3.5-5.1); Sodium Level 138 mmol/L (136-145)
--- NOTE | 2024-06-07 08:01 | PN.ORTHO_ITS ---
Subjective Subjective The patient was sitting in bed upon examination. Patient denies any chest pain, shortness of breath, dizziness, lightheadedness, nausea or vomiting, or calf pain. Pain is controlled on medications. No adverse overnight events. Patient is doing well this morning. He has no complaints this morning. He has been up walking. Objective Data Objective Data Vital Signs: Vital Signs Temp Pulse Resp BP Pulse Ox O2 Del Method O2 Flow Rate 97.8 F 75 17 111/77 96 Room Air 4 06/07/24 05:21 06/07/24 05:21 06/07/24 05:21 06/07/24 05:21 06/07/24 05:21 06/07/24 05:06/06/24 13:39 Oxygen Flow Rate (L/min) 4 Oxygen Delivery Method Room Air Weight: 81.647 kg Body Mass Index (BMI) 25.1 Intake & Output: Intake and Output for Last 24 Hours 06/05/24 06/06/24 06/07/24 23:59 23:59 23:59 Intake Total 2569.82 / 2569.82 170 / 170 Balance 2569.82 / 2569.82 170 / 170 Lab / Micro Data 06/07/24 06:41 06/07/24 06:41 Labs: Laboratory Results - last 24 hr 06/06/24 09:41: POC Glucose 94 06/07/24 06:41: WBC 12.6 H, RBC 3.65 L, Hgb 11.5 L, Hct 33.9 L, MCV 92.9, MCH 31.5, MCHC 33.9, RDW Std Deviation 42.8, RDW Coeff of Tia 12.5, Plt Count 161, MPV 9.6, Sodium 138, Potassium 5.2 H, Chloride 109 H, Carbon Dioxide 26.0, Anion Gap 3 L, BUN 17, Creatinine 0.90, Estim Creat Clear Calc 77.86, Est GFR (MDRD) Af Amer 107, Est GFR (MDRD) Non-Af 88, BUN/Creatinine Ratio 19.0, Glucose 126 H, Calcium 8.2 L Micro: Microbiology 05/12/24 08:02 Swab (Method) Nasal Screen MRSA/MSSA - Final Radiography Diagnostic Testing: Radiology Impression Knee X-Ray 06/06/24 06:52 IMPRESSION: Status post total knee replacement. There is good alignment. Postoperative soft tissue changes. Electronically Signed: Antony Guevara MD at 13:35 EDT , Physical Exam Narrative Vital signs stable and afebrile. SCDs and JESUS hose are in place bilaterally Patient is able to plantarflex and dorsiflex actively. Sensation is intact to light touch to saphenous, sural, superficial and deep peroneal, and tibial distribution. Dressings are clean dry and intact. Negative Homans bilaterally, negative signs and symptoms of DVT. Const alert, oriented x3 and no apparent distress Assessment & Plan Assessment/Plan (1) Status post total right knee replacement: PLAN: 1. S/P robotic assisted right total knee arthroplasty POD #1 2. Continue Pain Medications: Tylenol, meloxicam, oxycodone. Do not take any other nonsteroidal anti-inflammatories while using meloxicam/Mobic. 3. DVT Prophylaxis: Take 81 mg aspirin twice daily for 4 weeks postoperatively for DVT prophylaxis. Patient denies past history of DVT or pulmonary embolism. 4. PT/OT: Weightbearing as tolerated with walker 5. H & H: 11.5/33.9, asymptomatic. Labs have been reviewed and stable. Patient had hyperkalemia at 5.2. He is asymptomatic. 6. Reactive leukocytosis: 12.6, Afebrile. Patient did receive Decadron intraoperatively. No clinical signs of infection. 7. Encouraged Incentive Spirometry 8. Patient is aware of postoperative constipation that can occur from 1-3 days postoperatively. Will continue with senna 2 tablets twice daily until first bowel movement. Patient was advised if not having a bowel movement after day 3 she is to contact orthopedics so appropriate change can be made. Patient voiced understanding. 9. Continue postoperative medical treatment per medicine 10. Disposition: Plan will be for discharge home today as long as patient remains medically stable, tolerates therapy, and pain is adequately controlled. Patient has been up walking without difficulty. We discussed his postoperative block. Patient does have outpatient physical therapy established. He will follow-up per postoperative instructions. Patient would like his prescriptions E scribed to [id number] in [facility]. Upon discharge he will contact our office with any concerns or questions. I have reviewed the [place] Automated Rx Reporting System (OARRS) report for this patient for refill pattern and other prescriber involvement as part of the appropriate surveillance for the provision of acute and chronic controlled medications. The report was requested and reviewed on the date of this entry and was considered in the prescribing process. This dictation was created using voice recognition software. Phonetic and/or grammatical errors may exist.
--- NOTE | 2024-06-07 08:04 | DCINST_ITS ---
Discharge Instructions Diet Discharge Diet: No restrictions Activity Discharge Activity: May Not Drive (No driving for 6 weeks postoperatively. Must also be off all narcotics and able to walk 100 feet without the use of cane or walker.) May shower in (days): 1 (Please turn dressing away from water. Okay to get wet as long as dressing is intact to skin.) Ice area for (Minutes): 20 (Every 1-2 hours while awake. Please place barrier between the skin and ice pack.) Weight Bearing Status: Weight bearing as tolerated Keep extremity elevated above heart level: Operative Extremity Dressing / Incision Call your doctor if your incision/area has: Continuous Slow Oozing, Sudden Increased Bleeding, Increased Pain/ Swelling, Increased Redness and Foul Smelling Discharge Call your doctor if you observe: Fever of 101 or Higher, Coldness, Increased Pain, Numbness or Tingling, Change in Color, Shortness of breath, Chest pain, Calf discomfort and Uncontrolled pain Remove Dressing in: 4 days (Okay to remove dressing on June 11, 2024) Additional Dressing/Incision Instructions:: Follow [facility] Post-op Instructions. Once postoperative dressing has been removed only use gentle soap and water over the incision. Do not use any ointments, Neosporin, salves, alcohol pads over the incision for 6 weeks postoperatively. Do not submerge underwater for 6 weeks postoperatively. Continue with JESUS hose/elastic stockings for 2 weeks postoperatively. May remove at nighttime but needs to be placed back on the leg during the day. Do NOT use alcohol with narcotic pain medication. Do NOT make important decisions while taking narcotic medication. If you have problems with taking your medication (rash, itching, nausea, etc.) call the office at once. Follow Up Care Test Results: Test results from this visit will be discussed in further detail at your follow- up appointment, if applicable. Discharge Plan Admission Admit Date/Time: 06/06/24 13:41 Attending Provider: Mariusz Trejo Primary Care Provider: Garfield Brunson Consulting Providers: Mary Kay Wilson Discharge Orders/Prescriptions Prescriptions: New acetaminophen 500 mg Tablet 1,000 mg PO Q8 14 Days Qty: 0 0RF Rx Instructions: Do not take more than 3000 mg Tylenol in a 24-hour period. aspirin 81 mg Tablet,Chewable 81 mg PO BID 30 Days Qty: 0 0RF Rx Instructions: Take 81 mg aspirin twice daily for 4 weeks postoperatively for DVT prophylaxis. After 4 weeks of treatment back to normal 81 mg aspirin daily famotidine 20 mg Tablet 20 mg PO DAILY 30 Days Qty: 30 0RF meloxicam 7.5 mg Tablet 7.5 mg PO BID 30 Days Qty: 60 0RF Rx Instructions: Do not take any other nonsteroidal anti-inflammatories while using meloxicam/Mobic. oxycodone 5 mg Tablet 5 - 10 mg PO Q4H PRN PRN (Reason: Pain Score 4-10) 7 Days Qty: 42 0RF sennosides-docusate sodium [Stimulant Laxative Plus] 8.6-50 mg Tablet 2 tab PO BID 3 Days Qty: 12 0RF Rx Instructions: Take until first bowel movement, then as needed Continued metoprolol succinate 50 mg tablet extended release 24 hr 50 mg PO QHS rosuvastatin 10 mg tablet 10 mg PO QHS sildenafil 50 mg tablet 50 mg PO PRN PRN (Reason: ED) diphenhydramine HCl [Benadryl] 25 mg capsule 25 mg PO QHS cholecalciferol (vitamin D3) [Vitamin D3] 125 mcg (5,000 unit) tablet 125 mcg PO QHS Discontinued aspirin [Adult Aspirin Regimen] 81 mg tablet,delayed release (DR/EC) 81 mg PO QHS Referrals / Follow Up: Physical,Therapy [Other] - 06/09/24 10:30 am Garfield Brunson DO [Primary Care Provider] - Neal Torrez PA-C [Med Staff - [facility] Practice Prof] - 06/17/24 9:00 am Disposition Disposition (needs filled in before D/C Order can be placed): Home, Self Care
[2024-06-07 08:11] VITALS: BP 95/58; PULSE 71; RESP 18; TEMP 36.5; O2SAT 95
[2024-06-07 08:17] VITALS: BP 110/64; PULSE 67; RESP 18; TEMP 36.6; O2SAT 96
[2024-06-07] MEDS: Famotidine 20 MG Tablet PO (08:48)
[2024-06-07] MEDS: Senna/Docusate Sodium 1 Tablet 2 TABLET PO (08:48)
[2024-06-07] MEDS: Aspirin 81 MG TAB.CHEW PO (08:48)
[2024-06-07] MEDS: Ensure Surgery 237 ML LIQUID PO ×2 (08:50→12:32)
[2024-06-07 09:00] VITALS: PULSE 67; RESP 18; O2SAT 96
--- NOTE | 2024-06-07 10:17 | PHA.DC.MC.R ---
Pharmacy [facility] Pharmacy Service has performed discharge medication reconciliation and counseling for this patient. The patient's discharge medication list was reviewed for discrepancies and discrepancies were resolved. The patient was counseled on the following discharge medications and changes in medications for homegoing were reviewed. The Reason for Use, instructions for use, and potential side effects were reviewed for all new medications. The patient's questions regarding all of their medications were answered. 1. Acetaminophen 1000 mg PO TID 2. Aspirin 81 mg PO BID 3. Famotidine 20 mg PO daily 4. Meloxicam 7.5 mg PO BID 5. Oxycodone 5-10 mg PO Q4H PRN pain 6. Senna/docusate 2 tablets PO BID The patient was able to verbally demonstrate an understanding of their discharge medications. Medications at Discharge Home Medications cholecalciferol (vitamin D3) 125 mcg (5,000 unit) tablet (Vitamin D3) 125 mcg PO QHS 05/11/24 diphenhydramine HCl 25 mg capsule (Benadryl) 25 mg PO QHS 05/11/24 metoprolol succinate 50 mg tablet,extended release 24 hr 50 mg PO QHS 05/11/24 rosuvastatin 10 mg tablet 10 mg PO QHS 05/11/24 sildenafil 50 mg tablet 50 mg PO PRN PRN ED 05/11/24 acetaminophen 500 mg tablet 1,000 mg (2 x 500 mg) PO Q8 2 weeks #0 tabs 06/07/24 aspirin 81 mg chewable tablet 81 mg PO BID 30 days #0 tabs 06/07/24 famotidine 20 mg tablet 20 mg PO DAILY 30 days #30 tabs 06/07/24 meloxicam 7.5 mg tablet 7.5 mg PO BID 30 days #60 tabs 06/07/24 oxycodone 5 mg tablet 5 - 10 mg (1 - 2 x 5 mg) PO Q4H PRN PRN Pain Score 4-10 7 days #42 tabs 06/07/24 sennosides 8.6 mg-docusate sodium 50 mg tablet (Stimulant Laxative Plus) 2 tab PO BID 3 days #12 tabs 06/07/24
--- NOTE | 2024-06-07 10:18 | CASEMGMT ---
TED WORLEY Assessment: Face to Face with pt for initial transition planning/care coordination assessment. TED WORLEY introduced self and role at [facility], pt voices understanding and consents to assessment. Pt is A&O x4 and answers all questions appropriately at this time. Pt sitting up in bed with at bedside. Pt agreeable to assessment with present. Care providers, pharmacy, and demographics verified/updated. Admitting Dx: Robotic assisted R total knee arthroplasty PCP:Nannette Specialists:Rae Trejo; Armin, cardio Preferred Pharmacy: [facility] Insurance: [facility], MMO Prescription Benefit: yes LNOK: Janel Onofre, Living Arrangements: Pt lives with in a single story home with 1 step to enter. Pt reports he was I in ADL's/IADL's prior to surgery. Pt denies concerns at home. Transportation: Pt drives self and denies concerns with transportation. Pt will transport pt until he can drive again. DME:c[facility], [facility], [facility] HHC/SNF: Denies hx of Pt states no concerns with going home at time of dc. Pt has outpt therapy set up at [facility] on . Pt states no further concerns/needs. CM to follow. Advised pt to ask CM if any further question/concerns/needs arise, voices understanding. Pt Goal: Home with outpt therapy already set up Plan: Home with outpt therapy already set up Idania JEAN CM
[2024-06-07] MEDS: Sodium Polystyrene Sulfonate 15 GM/60 ML UDC PO (12:32)
--- NOTE | 2024-06-07 14:23 | PCM.PN.HOSP ---
Reason for Visit Reason for Visit: Diagnoses Unspecified osteoarthritis, unspecified site (06/06/24) Encounter for other preprocedural examination (06/06/24) Presence of right artificial knee joint (06/06/24) Objective Data Objective Data Vital Signs: Vital Signs Temp Pulse Resp BP Pulse Ox O2 Del Method O2 Flow Rate 97.8 F 67 18 110/64 96 Room Air 4 06/07/24 08:17 06/07/24 09:00 06/07/24 09:00 06/07/24 08:17 06/07/24 09:00 06/07/24 09:00 06/06/24 13:39 Oxygen Flow Rate (L/min) 4 Oxygen Delivery Method Room Air Weight: 180 lb Body Mass Index (BMI) 25.1 Intake & Output: Intake and Output for Last 24 Hours 06/05/24 06/06/24 06/07/24 23:59 23:59 23:59 Intake Total 2569.82 / 2569.82 170 / 170 Balance 2569.82 / 2569.82 170 / 170 Lab / Micro Data 06/07/24 06:41 06/07/24 06:41 Labs: Laboratory Results - last 24 hr 06/07/24 06:41: WBC 12.6 H, RBC 3.65 L, Hgb 11.5 L, Hct 33.9 L, MCV 92.9, MCH 31.5, MCHC 33.9, RDW Std Deviation 42.8, RDW Coeff of Tia 12.5, Plt Count 161, MPV 9.6, Sodium 138, Potassium 5.2 H, Chloride 109 H, Carbon Dioxide 26.0, Anion Gap 3 L, BUN 17, Creatinine 0.90, Estim Creat Clear Calc 77.86, Est GFR (MDRD) Af Amer 107, Est GFR (MDRD) Non-Af 88, BUN/Creatinine Ratio 19.0, Glucose 126 H, Calcium 8.2 L Micro: Microbiology 05/12/24 08:02 Swab (Method) Nasal Screen MRSA/MSSA - Final Physical Exam Narrative Seen and examined. Patient does not have any acute complaints. He was walking on the hallway with the help of physical therapist. General: Alert, Oriented x3, Cooperative HEENT: Atraumatic, PERRLA, EOMI, Normocephalic Oral: No Gingival or Mucosal Lesions/ Ulcerations Neck: Supple, No JVD, Negative Carotid Bruits Chest wall/Lungs: Air entry diminished in bilateral lung bases. No crepitation/rhonchi Cardiovascular: Regular rate, Regular Rhythm, Normal S1, Normal S2, No M/G/R Abdomen: Bowel Sounds Present, Soft, Non Tender, Non-Distended : No dysuria. No renal angle tenderness. No suprapubic tenderness. Extremities: Mild postop right knee edema, Capillary Refill Less than 3 Seconds Skin: Surgical dressing is dry. No hematoma Musculoskeletal: Right knee has ice bag on it. Dressing dry. No Tenderness to Palpation of Joints or Extremities Neurological: Cranial nerves II-XII grossly intact, DTR 2+/4. No acute focal neurological deficit. Psych/Mental Status: Normal Affect, Appropriate. Assessment & Plan Assessment/Plan (1) Osteoarthritis: PLAN: Plan The patient is a 74 y/o M w/ PMHx: Severe OA R Knee, HTN, HLD, Valvular Heart Disease s/p MVR who presents to the [facility] on 06/06/24 secondary to significant right knee discomfort for planned right total knee replacement per Dr. Koch. #1. Severe Osteoarthritis, right knee: Failed conservative therapies and treatments, admitted per Dr. Trejo, status post right minimally invasive robotic total knee replacement, post-operative pain is controlled, bowel regimen, DVT Prophylaxis, PT/OT/CM per Orthopedic surgery discretion. 06/07: Patient is being discharged home today. Patient is hemodynamically stable with regards to blood pressure heart rate and no chest pain or shortness of breath #2. Valvular heart disease: No echocardiogram noted in the system, per records status post MV replacement but unclear, encourage continued outpatient follow-up with cardiology as previously arranged. #3. Hypertension: Continue home regimen including metoprolol, PRN hydralazine. #4. Hyperlipidemia: We will continue patient on statin therapy. #5. DVT prophylaxis: Recommends Xarelto 10 mg daily or Eliquis 2.5 mg daily at least for 2 weeks for right knee replacement. Charges/Coding Visit Charges Inpatient E&M: 96356 Subs Hosp L2
== END 2024-06-07 13:41 | disposition home or self-care (01) ==
LOC: AC 09:19 → MS3 17:42 → SDC 06-14 08:39 → AC 06-14 08:39 → SDC 06-14 08:39 → MS3 06-14 08:39
PROVIDERS: Anesthesiology; Admitting Provider Specialist; PCP Family Medicine; Referring Provider Specialist; Visit Provider Specialist
PROC: 0SRC0JZ Replacement of Right Knee Joint with Synthetic Substitute, Open Approach (ICD-10-PCS; CPT 27447; principal; 2024-06-06 10:45)
DX: M17.0 Bilateral primary osteoarthritis of knee (principal); I10 Essential (primary) hypertension; E78.00 Pure hypercholesterolemia, unspecified; M21.161 Varus deformity, not elsewhere classified, right knee; M21.162 Varus deformity, not elsewhere classified, left knee; Z95.2 Presence of prosthetic heart valve; Z79.899 Other long term (current) drug therapy; Z79.82 Long term (current) use of aspirin
CPT/HCPCS: 27447; S2900; 01402; 64447; 36415; 73560; 80048; 82040; 82962; 83735; 85025; 85027; 87081; 88305; 88311; 93005; 94668; 96361; 96365; 96366; 97110; 97162; 97166; 97530; 97535; 99221; 99252; C1776; J7120; A4216; G0378; G0463; J2405; J3475

== ENCOUNTER 2024-06-08 08:58 | Emergency (ER) | payer MEDICARE, OTHER, SELFPAY ==
[2024-06-08 08:58] VITALS: BP 107/59; PULSE 65; RESP 14; TEMP 36.6; O2SAT 98
--- NOTE | 2024-06-08 09:00 | EX.ED.DYSGE1 ---
HPI History of Present Illness Chief Complaint: Syncope [facility] Medical History Wears hearing aid Wears glasses Alcohol use Arthritis High cholesterol Back pain Injury of back Syncope Non-smoker Leg cramps History of pain when walking Hypertension History of stress test History of echocardiogram Cardiology follow-up encounter History of inguinal hernia Home Medications ?Medication ?Instructions ?Recorded ?Last Taken ?Type cholecalciferol (vitamin D3) 125 125 mcg PO QHS 05/11/24 06/05/24 History mcg (5,000 unit) tablet (Vitamin D3) diphenhydramine HCl 25 mg capsule 25 mg PO QHS 05/11/24 06/05/24 History (Benadryl) metoprolol succinate 50 mg 50 mg PO QHS 05/11/24 06/05/24 History tablet,extended release 24 hr rosuvastatin 10 mg tablet 10 mg PO QHS 05/11/24 06/05/24 History sildenafil 50 mg tablet 50 mg PO PRN PRN ED 05/11/24 Unknown History acetaminophen 500 mg tablet 1,000 mg (2 x 500 mg) PO Q8 2 06/07/24 Unknown Rx weeks #0 tabs aspirin 81 mg chewable tablet 81 mg PO BID 30 days #0 tabs 06/07/24 Unknown Rx famotidine 20 mg tablet 20 mg PO DAILY 30 days #30 tabs 06/07/24 Unknown Rx meloxicam 7.5 mg tablet 7.5 mg PO BID 30 days #60 tabs 06/07/24 Unknown Rx oxycodone 5 mg tablet 5 - 10 mg (1 - 2 x 5 mg) PO Q4H 06/07/24 Unknown Rx PRN PRN Pain Score 4-10 7 days #42 tabs sennosides 8.6 mg-docusate sodium 2 tab PO BID 3 days #12 tabs 06/07/24 Unknown Rx 50 mg tablet (Stimulant Laxative Plus) Allergy/AdvReac Type Severity Reaction Status Date / Time naproxen Allergy Intermediate Swelling Verified 06/08/24 08:59 Surgical History History of cardiac catheterization Hx of colonoscopy Hx of toe surgery Hx of tonsillectomy Hx of arthroscopic knee surgery History of shoulder surgery Hx of mitral valve repair Social History Smoking Status: Never smoker EXAM Physical Exam Const Vital Signs: 06/08/24 08:58 06/08/24 08:58 06/08/24 10:17 Temperature 98 F Temperature Source Temporal Pulse Rate 65 Pulse Rate [Lying] 66 Pulse Rate [Sitting (for 1 minute prior to obtaining)] 57 L Pulse Rate [Standing (for 1 minute prior to obtaining)] 63 Respiratory Rate 14 Respiratory Effort Normal Respiratory Pattern Normal Blood Pressure 107/59 L Blood Pressure [Lying] 109/58 L Blood Pressure [Sitting (for 1 minute prior to obtaining)] 97/52 L Blood Pressure [Standing (for 1 minute prior to obtaining)] 96/51 L Blood Pressure Mean 75 Blood Pressure Mean [Lying] 75 Blood Pressure Mean [Sitting (for 1 minute prior to obtaining)] 67 Blood Pressure Mean [Standing (for 1 minute prior to obtaining)] 66 Pulse Ox 98 Oxygen Delivery Method Room Air 06/08/24 10:58 Temperature Temperature Source Pulse Rate 76 Pulse Rate [Lying] Pulse Rate [Sitting (for 1 minute prior to obtaining)] Pulse Rate [Standing (for 1 minute prior to obtaining)] Respiratory Rate 17 Respiratory Effort Respiratory Pattern Blood Pressure 158/79 H Blood Pressure [Lying] Blood Pressure [Sitting (for 1 minute prior to obtaining)] Blood Pressure [Standing (for 1 minute prior to obtaining)] Blood Pressure Mean 105 Blood Pressure Mean [Lying] Blood Pressure Mean [Sitting (for 1 minute prior to obtaining)] Blood Pressure Mean [Standing (for 1 minute prior to obtaining)] Pulse Ox 93 Oxygen Delivery Method Room Air MDM MDM MDM Narrative Medical decision making narrative: HISTORY OF PRESENT ILLNESS: 74-year-old male presents with concern for syncope. He endorses a history of mitral valve repair back in 1999. He states approximate 5 AM patient was getting up to use the bathroom wheels and became lightheaded dizzy and lost consciousness. He is unsure if he hit his head. He denies any chest pain or shortness of breath prior to losing consciousness. Denies any prior history of loss of consciousness. Denies any recent bleeding diathesis. Diarrhea vomiting. Denies any fever cough or chills. Notes recent surgery but denies any other VTE risk factors. Denies any family or personal history of connective tissue disorders. He states he was discharged yesterday after a right knee replacement by Dr. Trejo. He states he not eat very much yesterday only had a salad in the afternoon but felt bloated secondary to starting oxycodone and so did not eat dinner. He notes he also has decreased p.o. oral intake as well. He denies any leg swelling, orthopnea. REVIEW OF SYSTEMS: Pertinent positives: Syncope Pertinent negatives: Nausea vomiting, diarrhea PHYSICAL EXAM: Nursing triage notes reviewed, Vital signs reviewed Constitutional: please see mdm HENT: MMM Eyes: Pupils equal round and reactive to light, Extraocular muscles intact Neck: No stridor, no JVD, full neck ROM Lungs: Clear to auscultation, No wheezing or rales. No increased work of breathing, no conversational dyspnea, no accessory muscle use, no nasal flaring. No respiratory distress noted Heart: Regular rate and rhythm, No murmurs, No rubs and No gallops, 2+ distal pulses (radial, femoral, posterior tibial) in all extremities Abdomen: Soft, there is no tenderness, rigidity, rebound or guarding, no obvious peritoneal signs, no palpable pulsatile abdominal masses, no auscultated abdominal bruit : No CVAT Extremities: No edema Neuro: No focal neurological deficits, cranial nerves II through XII intact, 5/5 strength in all extremities. Intact sensation to light touch in all extremities, 2+ reflexes bilateral patella tendons. Normal gait. No ataxia. Skin: No rash or lesions noted MEDICAL DECISION MAKING: Chief Complaint: Syncope External records reviewed: Reviewed prior inpatient record. Discharged on 06/07/2024 Factors affecting care: Severe OA R Knee, HTN, HLD, Valvular Heart Disease s/p MV Social determinants of health: none History obtained from others: none Consults: none [facility] Narrative: Patient was hemodynamically stable, afebrile and nontoxic-appearing. I considered the following differential diagnosis: Arrhythmia, myocardial ischemia, electrolyte disturbance, anemia, dehydration, PE I obtained a broad lab and imaging workup to further elucidate etiology patient complaints. ALL IMAGES (IF OBTAINED) HAVE BEEN PERSONALLY REVIEWED AND INTERPRETED BY MYSELF. EKG with normal sinus rhythm, normal axis, prolonged [place] interval, first-degree AV block, no obvious STEMI, no evidence of WPW, ARVD or Brugada syndrome. No stigmata of right heart strain or pericarditis noted. BNP only marginally elevated, this is indicative of increased ventricular stretch or transmural wall pressure however on exam there is no stigmata of heart failure, no rales, lower extremity edema, no hypoxia. Will await CT scan to assess if there is any sign of pulmonary edema or PE to explain this finding otherwise it is likely noncontributory. CT of the chest shows no evidence of obvious PE, pneumonia or signs of heart failure CT head negative for ICH CBC with mild anemia (slightly worse than baseline likely secondary to recent surgery), noted thrombocytopenia (similar to baseline), no leukocytosis to suggest systemic inflammation CMP without evidence of acute kidney injury, significant electrolyte abnormality, anion gap, no evidence hepatobiliary pathology. The synthesis of the patient's history, physical exam, labs images suggest likely dehydration secondary to poor p.o. intake after surgery. There is no signs of arrhythmia, myocardial ischemia, pulmonary embolism, intracranial hemorrhage, significant anemia, electrolyte disturbance or acute kidney injury. No signs of any life or limb threatening etiology to be ascertained. I did consult cardiology Dr. Paul. I described the patient's case. Dr. Paul agreed that admission would likely be counterproductive in this case given reassuring labs, vital signs, physical exam and history. He will expedite the patient's outpatient follow-up. I discussed with the patient who agreed with outpatient follow-up. He was alert and orient x 3 and able to voice risk and benefits of admission versus discharge and was amenable to discharge at this time. The patient and/or family, caregivers express understanding. The patient and/or family, caregivers agrees with the plan. Shared decision making: I will have a discussion with the patient and or visitors regarding risk/benefits of further testing or admission. They will be made aware of of the risk/benefits inherent in this decision they will be given the opportunity to voice understanding. Total critical care time today provided was at least 0 minutes. This excludes separately billable procedures. Critical care time (if documented) is secondary to the patient having high probability of clinically significant/life threatening deterioration in the patient's condition which required my urgent intervention. Impression: 1. Syncope 2. Status post right knee replacement 3. History of mitral valve repair Dispo: discharge home This note was generated with [employer] dictation software. It may contain incorrect words, spelling, and punctuation that were not noted in review of the chart prior to signing. Lab Data Labs: Laboratory Results - last 24 hr 06/08/24 09:25 WBC 8.0 RBC 3.28 L Hgb 10.2 L Hct 30.8 L MCV 93.9 MCH 31.1 MCHC 33.1 RDW Std Deviation 44.2 H RDW Coeff of Tia 12.8 Plt Count 135 L MPV 9.9 Immature Gran % (Auto) 0.100 Neut % (Auto) 71.9 H Lymph % (Auto) 14.1 L Rincon % (Auto) 12.2 H Eos % (Auto) 1.2 Baso % (Auto) 0.5 Absolute Neuts (auto) 5.8 Absolute Lymphs (auto) 1.13 Nucleated RBC % 0 Sodium 139 Potassium 4.1 Chloride 108 H Carbon Dioxide 27.0 Anion Gap 4 L BUN 17 Creatinine 0.99 Est GFR (MDRD) Af Amer 95 Est GFR (MDRD) Non-Af 79 BUN/Creatinine Ratio 17.2 Glucose 123 H Calcium 8.0 L Magnesium 1.9 Total Bilirubin 0.80 AST 18 ALT 14 L Alkaline Phosphatase 53 Troponin I High Sens 6 B-Natriuretic Peptide 101.4 H Total Protein 5.6 L Albumin 2.8 L Globulin 2.8 Albumin/Globulin Ratio 1.0 Radiography Diagnostic Testing: Clinical Impression(s) from Imaging Studies Brain CT 06/08/24 10:27 IMPRESSION: Chronic involutional changes of the brain. Electronically Signed: Antony Guevara MD at 10:48 EDT , Chest CTA 06/08/24 10:27 IMPRESSION: Mild linear atelectasis at the lung bases. No evidence of pulmonary embolism. Electronically Signed: Antony Guevara MD at 10:51 EDT , Discharge Plan Triage Chief Complaint: Syncope ED Provider: Kapil Jackson Dx/Rx/DC Orders Instructions: ED Hypotension, Orthostatic, ED Fainting, Uncertain Cause Prescriptions: No Action metoprolol succinate 50 mg tablet extended release 24 hr 50 mg PO QHS rosuvastatin 10 mg tablet 10 mg PO QHS sildenafil 50 mg tablet 50 mg PO PRN PRN (Reason: ED) diphenhydramine HCl [Benadryl] 25 mg capsule 25 mg PO QHS cholecalciferol (vitamin D3) [Vitamin D3] 125 mcg (5,000 unit) tablet 125 mcg PO QHS acetaminophen 500 mg Tablet 1,000 mg PO Q8 14 Days Qty: 0 0RF Rx Instructions: Do not take more than 3000 mg Tylenol in a 24-hour period. aspirin 81 mg Tablet,Chewable 81 mg PO BID 30 Days Qty: 0 0RF Rx Instructions: Take 81 mg aspirin twice daily for 4 weeks postoperatively for DVT prophylaxis. After 4 weeks of treatment back to normal 81 mg aspirin daily famotidine 20 mg Tablet 20 mg PO DAILY 30 Days Qty: 30 0RF meloxicam 7.5 mg Tablet 7.5 mg PO BID 30 Days Qty: 60 0RF Rx Instructions: Do not take any other nonsteroidal anti-inflammatories while using meloxicam/Mobic. oxycodone 5 mg Tablet 5 - 10 mg PO Q4H PRN PRN (Reason: Pain Score 4-10) 7 Days Qty: 42 0RF sennosides-docusate sodium [Stimulant Laxative Plus] 8.6-50 mg Tablet 2 tab PO BID 3 Days Qty: 12 0RF Rx Instructions: Take until first bowel movement, then as needed Primary Care Provider: Garfield Brunson Referrals: Sterling Paul MD [Med Staff - Active Staff] - Activity Restrictions/Additional Instructions: Thank you for trusting us with your care today! Your labs and images were unremarkable for signs of blood clots, significant anemia, significant signs of kidney failure, electrolyte disturbances, pneumonia. I suspect you are suffering from dehydration secondary to poor oral intake after your surgery. Please take Tylenol (2 pills, 650 mg), ibuprofen (2 pills, 400 mg) every 6 hours as needed for pain and fever control. Please return to the emergency department if your symptoms change or worsen. Please follow with cardiology (Dr. Paul) for further outpatient evaluation and management. Print Language: Chilean Disposition Disposition: Home, Self Care
--- NOTE | 2024-06-08 09:05 | EKG12_ITS ---
Test Reason : SYNCOPE/DIZZY Blood Pressure : / mmHG Vent. Rate : 064 BPM Atrial Rate : 064 BPM P-R Int : 210 ms QRS Dur : 106 ms QT Int : 408 ms P-R-T Axes : 054 078 053 degrees QTc Int : 420 ms Sinus rhythm with 1st degree A-V block Incomplete left bundle branch block Borderline ECG Confirmed by DANICA JAVIER, KEM ([id number]), movie editor LING ESPINAL ([id number]) on 06/14/2024 1:35:33 PM Referred By: Confirmed By:JAKE MISHRA MD
[2024-06-08] MEDS: 0.9% Normal Saline (500mL Bag) 500 ML 1000 ML IV (09:33)
[2024-06-08 09:41] LABS: Absolute Lymphocyte Count 1.13 X10^3/uL (0.83-4.51); Absolute Neutrophil Count 5.8 X10^3/uL (2.0-7.7); Basophil# 0.04 X10^3/uL; Basophil% 0.5 % (0-1); Eosinophils% 1.2 % (0-5); Hematocrit 30.8 % (40-54); Hemoglobin 10.2 g/dL (13.0-16.5); Lymphocyte # 1.13 X10^3/ul (0.83-4.51); Lymphocyte % 14.1 % (19-41); Mean Corp Hgb Conc 33.1 g/dL (32-36); Mean Corpuscular Hgb 31.1 pg (27.0-32.0); Mean Corpuscular Volume 93.9 fL (80-94); Mean Platelet Vol. 9.9 fl (6.2-12.0); Monocyte# 0.98 X10^3/uL; Monocyte% 12.2 % (0-10); NRBC Flagged by Analyzer 0 % (0-5); Neutrophil # 5.76 X10^3/uL (2.7-7.7); Neutrophil % 71.9 % (47-70); Platelet Count 135 K/mm3 (150-450); RBC Distribution Width CV 12.8 % (11.6-14.6); RBC Distribution Width SD 44.2 fl (35.1-43.9); Red Blood Count 3.28 M/mm3 (4.6-6.2)
[2024-06-08 09:58] LABS: BNP,B-Type NATRIURETIC PEPTIDE 101.4 pg/mL (0-100)
[2024-06-08 09:59] LABS: AST(SGOT) 18 U/L (15-37); Alanine Aminotransfer ALT/SGPT 14 U/L (16-61); Albumin, Serum 2.8 g/dL (3.2-5.0); Alkaline Phosphatase 53 U/L (45-117); Anion Gap 4 (5-15); BUN 17 mg/dL (7-18); BUN/Creat Ratio 17.2 RATIO (10-20); Chloride 108 mmol/L (98-107); Creatinine, Serum 0.99 mg/dL (0.70-1.30); EST Glomerular Filtration Rate 79 mL/min (>60); Est Glom Filt Rate - Afr Amer 95 mL/min (>60); Globulin 2.8 g/dL (2.2-4.2); Glucose 123 mg/dL (74-106); Magnesium 1.9 mg/dL (1.6-2.6); Potassium 4.1 mmol/L (3.5-5.1); Protein, Total 5.6 g/dL (6.4-8.2); Sodium Level 139 mmol/L (136-145); Troponin-I HS 6 pg/mL (3.0-78.0)
[2024-06-08 10:17] VITALS: BP 109/58; BP 96/51; BP 97/52; PULSE 57; PULSE 63; PULSE 66
--- NOTE | 2024-06-08 10:27 | CT_ITS ---
STUDY: CTA CHEST REASON FOR EXAM: Male, 74 years old. Syncope after surgery RADIATION DOSAGE (If Supplied By Facility): CTDIvol = ( 15.43 ) mGy, DLP = ( 539.18 ) mGycm TECHNIQUE: The examination was performed with the intravenous administration of IV 100mL Isovue-370. Post-processing of the angiographic images was performed, with multiplanar reformation and 3D reconstruction. Individualized dose optimization techniques were used for this CT. COMPARISON: None. FINDINGS: Normal enhancement of the main pulmonary artery and right and left pulmonary arteries. Normal enhancement of the bilateral peripheral pulmonary arteries. There is no demonstrated pulmonary embolism. Normal thoracic aorta and visualized great vessels. There is no demonstrated aortic dissection. Sternal cerclage wires and vascular clips are present from a prior sternotomy and coronary artery bypass graft procedure (CABG). There are calcifications of the coronary arteries. Normal mediastinum. Normal hilar regions. Normal visualized trachea and bronchi. The lungs are well expanded. Minimal degree of linear bibasilar atelectasis. Normal pleura. Normal chest wall structures. Normal osseous structures. Normal visualized upper abdomen. CT/CTA Chest W/WO Contrast IMPRESSION: Mild linear atelectasis at the lung bases. No evidence of pulmonary embolism. Electronically Signed: Antony Guevara MD at 10:51 EDT ,
--- NOTE | 2024-06-08 10:27 | CT_ITS ---
STUDY: CT BRAIN WITHOUT CONTRAST REASON FOR EXAM: Male, 74 years old. Head trauma due to a syncopal episode. RADIATION DOSAGE (If Supplied By Facility): CTDIvol = ( 44.99 ) mGy, DLP = ( 829.85 ) mGycm TECHNIQUE: Transaxial CT imaging of the brain was performed without administration of intravenous contrast material. Individualized dose optimization techniques were used for this CT. COMPARISON: No relevant priors. FINDINGS: Normal soft tissue structures. Normal calvarium. There is mild cerebral atrophy with widening of the extra-axial spaces and ventricular dilatation. Normal white matter tracts of the cerebral hemispheres. There are small punctate calcifications of the basal ganglia which are seen in the aging brain as a normal variant. Normal brainstem. Normal cerebellum. There is no intracranial hemorrhage. There are no findings of an acute ischemic infarction. Normal visualized paranasal sinuses. CT/Brain/Head without Contrast IMPRESSION: Chronic involutional changes of the brain. Electronically Signed: Antony Guevara MD at 10:48 EDT ,
[2024-06-08 10:58] VITALS: BP 158/79; PULSE 76; RESP 17; O2SAT 93
[2024-06-08 11:53] VITALS: BP 118/66; PULSE 74; RESP 16; TEMP 36.3; O2SAT 98
[2024-06-08] MEDS: Ondansetron ODT 4 MG Tablet PO (12:03)
--- NOTE | 2024-06-08 12:07 | ED.RN ---
Gave Zofran; would not scan. Double checked with Roberto Schumacher before admin
== END 2024-06-08 12:08 | disposition home or self-care (01) ==
PROVIDERS: Emergency Provider Emergency Medicine; PCP Family Medicine; Visit Provider Emergency Medicine
DX: R55 Syncope and collapse (principal); M17.11 Unilateral primary osteoarthritis, right knee; E78.00 Pure hypercholesterolemia, unspecified; I10 Essential (primary) hypertension; Z96.651 Presence of right artificial knee joint; Z79.899 Other long term (current) drug therapy; Z79.82 Long term (current) use of aspirin; Z95.2 Presence of prosthetic heart valve
CPT/HCPCS: 70450; 71275; 80053; 83735; 83880; 84484; 85025; 93005; 96360; 96361; 99285; J7030; Q9967

== ENCOUNTER → 2025-09-11 | Outpatient (CLI) | payer MEDICARE, OTHER, SELFPAY ==
--- NOTE | 2025-09-11 09:24 | MRI_ITS ---
PROCEDURE: LOWER EXT/NO JT/W/O 09/11/2025 REASON FOR EXAM: PAIN IN RIGHT FOOT, SECOND NTP JOINT TECHNIQUE: Procedure Code: MRILENJ Modality: MR Procedure: LOWER EXT/NO JT/W/O T1, T2, stir, multiplanar and multisequence images were obtained of the right forefoot without IV contrast administration. COMPARISON: COMPARISON : None FINDINGS: Bone Marrow: There is marrow edema in the proximal half of the 1st proximal phalanx, and in the distal 1st metatarsal which appears degenerative. Joint space narrowing and marginal osteophytes are noted. There is no occult fracture. Effusion: There is a small effusion at the 1st and 2nd metatarsophalangeal articulations. There is mild fluid distention of the 1st intermetatarsal bursa. Soft Tissues: There is no plantar muscular atrophy. The Lisfranc articulation is aligned. Ligaments and Tendons: There is increased fluid in the 2nd flexor tendon sheath in the distal metatarsal region, and at the distal aspect of the 2nd proximal phalanx with moderate tenosynovitis. There is no tendon tear or retraction. MRI/Lower Ext/No Jt/w/o IMPRESSION: There is marrow edema in the proximal half of the 1st proximal phalanx, and in the distal 1st metatarsal which appears degenerative. Joint space narrowing and marginal osteophytes are noted. There is a small effusion at the 1st and 2nd metatarsophalangeal articulations. There is mild fluid distention of the 1st intermetatarsal bursa. There is increased fluid in the 2nd flexor tendon sheath in the distal metatars al region, and at the distal aspect of the 2nd proximal phalanx with moderate tenosynovitis. Reading Location: [facility]
== END | disposition home or self-care (01) ==
PROVIDERS: PCP Family Medicine; Referring Provider Podiatrist; Visit Provider Podiatrist
DX: M75.51 Bursitis of right shoulder (principal); M79.641 Pain in right hand; S89.91XD Unspecified injury of right lower leg, subsequent encounter; M19.021 Primary osteoarthritis, right elbow
CPT/HCPCS: 73718